=== PATIENT | male | born 1955 | race Caucasian/White ===

== ENCOUNTER 2019-10-19 21:10 | Inpatient (IN) | payer OTHER ==
[~2019-10-19] VITALS: Ht 180.3 cm; Wt 102.0 kg
--- NOTE | 2019-10-19 21:25 | NUR ---
PA AT BEDSIDE TO ASSESS PT
[2019-10-19] MEDS ORDERED: ALBUTEROL/IPRATROPIUM 2.5MG/0.5MG, 3 ML NPPB ONE (21:30)
[2019-10-19] MEDS ORDERED: SODIUM CHLORIDE FLUSH 10ML SYR IVF ONE (21:30)
--- NOTE | 2019-10-19 21:35 | NUR ---
LAB AT BEDSIDE AT THIS TIME
[2019-10-19 21:47] LABS: BASOPHILS # (AUTO) 0.03 x10^3/uL (0-0.1); BASOPHILS % (AUTO) 0 % (0-1); EOSINOPHILS # (AUTO) 0.39 x10^3/uL (0-0.4); EOSINOPHILS % (AUTO) 4 % (1-7); LYMPHOCYTES # (AUTO) 2.04 x10^3/uL (1-3.4); LYMPHOCYTES % (AUTO) 23 % (22-44); MD NO; MEAN CORPUSCULAR HEMOGLOBIN 33.7 pg (27.5-34.5); MEAN CORPUSCULAR HGB CONC 33.6 g/dL (33.2-36.2); MEAN CORPUSCULAR VOLUME 100.2 fL (81-97); MEAN PLATELET VOLUME 7.7 fL (7.4-10.4); MONOCYTES # (AUTO) 0.62 x10^3/uL (0.2-0.8); MONOCYTES % (AUTO) 7 % (2-9); NEUTROPHILS % (AUTO) 66 % (42-75); PLATELET COUNT 255 x10^3/uL (130-400); RED CELL DISTRIBUTION WIDTH 12.3 % (9.4-14.8)
[2019-10-19 21:59] LABS: ALANINE AMINOTRANSFERASE 20 U/L (12-78); ALBUMIN 3.7 g/dL (3.4-5.0); ANION GAP 6 mmol/L (5-15); CALCIUM 8.5 mg/dL (8.5-10.1); CHLORIDE 107 mmol/L (98-107); CREATININE 1.17 mg/dL (0.7-1.3)
[2019-10-19 22:03] LABS: ALKALINE PHOSPHATASE 144 U/L (45-117); BILIRUBIN,TOTAL 0.4 mg/dL (0.2-1.0); TOTAL PROTEIN 7.9 g/dL (6.4-8.2); TROPONIN I < 0.015 ng/mL (0.000-0.045)
[2019-10-19] MEDS ORDERED: OMNIPAQUE 350 MG/ML, 100ML BOTTLE ONE (22:36)
--- NOTE | 2019-10-19 23:01 | NUR ---
PT SITTING UP ON GURKEMP. CALL LIGHT WTIHIN REACH
[2019-10-20] MEDS ORDERED: hydrALAzine 20 MG/ML, 1ML IVPush PRN
[2019-10-20] MEDS ORDERED: ONDANSETRON ODT 4 MG PO PRN
[2019-10-20] MEDS ORDERED: OXYcodone IR 5MG TABLET PO PRN
[2019-10-20] MEDS ORDERED: POLYETHYLENE GLYCOL 17 GM PACKET PO PRN
[2019-10-20] MEDS ORDERED: BISACODYL 10 MG SUPP PR PRN
[2019-10-20] MEDS ORDERED: PROMETHAZINE 25 MG/ML, 1ML IM PRN
[2019-10-20] MEDS ORDERED: ACETAMINOPHEN 325 MG TABLET PO PRN
[2019-10-20] MEDS ORDERED: DOCUSATE 100 MG CAPSULE PO PRN
[2019-10-20] MEDS ORDERED: ONDANSETRON 2MG/ML, 2ML IVPush PRN
[2019-10-20 00:06] VITALS: BP 131/77
[2019-10-20 00:43] LABS: FREE T4 (FREE THYROXINE) 1.01 ng/dL (0.76-1.46)
[2019-10-20 00:46] LABS: HEMOGLOBIN A1C 5.7 % (4.2-6.3)
[2019-10-20] MEDS: ENOXAPARIN 40 MG/0.4 ML SQ SCH ×2 (01:22→23:20)
[2019-10-20] MEDS: GUAIFENESIN ER 600 MG TABLET PO SCH ×3 (01:22→20:47)
[2019-10-20] MEDS: NICOTINE 14MG/24 HR PATCH.TD24 TD SCH ×2 (01:22→23:20)
[2019-10-20] MEDS: SODIUM CHLORIDE 0.9% 1,000 ML IV SCH ×2 (01:22→07:52)
[2019-10-20] MEDS: LISINOPRIL 40 MG TABLET PO SCH ×2 (01:23)
[2019-10-20] MEDS ORDERED: ALBUTEROL/IPRATROPIUM 2.5MG/0.5MG, 3 ML NPPB PRN (02:30)
[2019-10-20 05:20] VITALS: BP 125/78
[2019-10-20] MEDS: methylPREDNISolone SOD SUCC 125 MG/2 ML IVPush SCH ×3 (05:24→20:49)
[2019-10-20] MEDS: CARVEDILOL 6.25 MG TABLET PO SCH ×2 (05:24→17:38)
[2019-10-20 06:49] LABS: BASOPHILS # (AUTO) 0.01 x10^3/uL (0-0.1); BASOPHILS % (AUTO) 0 % (0-1); EOSINOPHILS % (AUTO) 0 % (1-7); LYMPHOCYTES # (AUTO) 0.57 x10^3/uL (1-3.4); LYMPHOCYTES % (AUTO) 9 % (22-44); MD NO; MEAN CORPUSCULAR HEMOGLOBIN 33.2 pg (27.5-34.5); MEAN CORPUSCULAR VOLUME 97.6 fL (81-97); MEAN PLATELET VOLUME 7.9 fL (7.4-10.4); MONOCYTES # (AUTO) 0.03 x10^3/uL (0.2-0.8); MONOCYTES % (AUTO) 1 % (2-9); NEUTROPHILS # (AUTO) 5.48 x10^3/uL (1.8-6.8); NEUTROPHILS % (AUTO) 90 % (42-75); PLATELET COUNT 232 x10^3/uL (130-400); RED BLOOD COUNT 4.65 x10^6/uL (4.38-5.82); RED CELL DISTRIBUTION WIDTH 12.1 % (9.4-14.8)
[2019-10-20 06:55] LABS: CHLORIDE 107 mmol/L (98-107)
[2019-10-20 07:02] LABS: ALANINE AMINOTRANSFERASE 20 U/L (12-78); ALBUMIN 3.3 g/dL (3.4-5.0); ALKALINE PHOSPHATASE 119 U/L (45-117); ANION GAP 9 mmol/L (5-15); BILIRUBIN,TOTAL 0.5 mg/dL (0.2-1.0); CALCIUM 8.5 mg/dL (8.5-10.1); CHOL/HDL RATIO 4.2; CHOLESTEROL, TOTAL 160 mg/dL (140-239); CREATININE 1.05 mg/dL (0.7-1.3); HDL CHOL % 24 % (26-37); HDL CHOLESTEROL (DIRECT) 38 mg/dL (40-60); LDL CHOLESTEROL,CALCULATED 106 mg/dL (54-169); LDL/HDL RATIO 2.8 (0.5-3.0); TOTAL PROTEIN 7.2 g/dL (6.4-8.2); TRIGLYCERIDES 78 mg/dL (50-200); VLDL CHOLESTEROL 16 mg/dL (0-25)
[2019-10-20 07:07] VITALS: BP 132/81
[2019-10-20] MEDS ORDERED: PRAV20TA2 PO (07:10)
[2019-10-20] MEDS ORDERED: CHLO25TA PO (07:12)
[2019-10-20] MEDS ORDERED: LISI40TA PO (07:13)
[2019-10-20] MEDS ORDERED: CARV6.25 PO (07:15)
[2019-10-20] MEDS ORDERED: AMLO10TA8 PO (07:15)
[2019-10-20] MEDS: ALBUTEROL/IPRATROPIUM 2.5MG/0.5MG, 3 ML NPPB SCH ×4 (07:30→19:02)
[2019-10-20] MEDS: DOXYCYCLINE 100MG TABLET PO SCH ×2 (09:19→20:48)
[2019-10-20] MEDS: AMLODIPINE 10 MG TAB PO SCH (09:19)
[2019-10-20] MEDS: CHLORTHALIDONE 25 MG TABLET PO SCH (09:20)
[2019-10-20] MEDS ORDERED: LANS15CA PO (09:22)
[2019-10-20] MEDS: BUSPIRONE 5 MG TABLET PO SCH ×3 (09:26→20:47)
[2019-10-20 15:18] VITALS: BP 122/73
[2019-10-20 20:02] VITALS: BP 128/72
[2019-10-20] MEDS: PRAVASTATIN 20 MG TABLET PO SCH ×2 (20:48)
[2019-10-21 00:39] VITALS: BP 127/72
[2019-10-21] MEDS: methylPREDNISolone SOD SUCC 125 MG/2 ML IVPush SCH ×2 (04:08→11:53)
[2019-10-21] MEDS: CARVEDILOL 6.25 MG TABLET PO SCH (05:50)
[2019-10-21 07:11] VITALS: BP 134/75
[2019-10-21] MEDS: ALBUTEROL/IPRATROPIUM 2.5MG/0.5MG, 3 ML NPPB SCH ×2 (07:25→11:25)
[2019-10-21] MEDS: DOXYCYCLINE 100MG TABLET PO SCH (08:18)
[2019-10-21] MEDS: CHLORTHALIDONE 25 MG TABLET PO SCH (08:18)
[2019-10-21] MEDS: GUAIFENESIN ER 600 MG TABLET PO SCH (08:18)
[2019-10-21] MEDS: BUSPIRONE 5 MG TABLET PO SCH (08:18)
[2019-10-21] MEDS: AMLODIPINE 10 MG TAB PO SCH (08:18)
[2019-10-21 13:21] VITALS: BP 137/77
[2019-10-21] MEDS ORDERED: NICO-486 TD (14:49)
[2019-10-21] MEDS ORDERED: ALBU90AE INH (14:49)
[2019-10-21] MEDS ORDERED: PRED20TA PO (14:49)
[2019-10-21] MEDS ORDERED: DOXY100T PO (14:54)
== END 2019-10-21 16:32 | disposition home or self-care (01) | DRG 189 ==
LOC: ED 23:19 → EDIP 23:43 → 4WST 23:55 → DCLOUNGE 10-21 16:14
PROVIDERS: ADMIT Internal Medicine; ATTEND Family Medicine
DX: J96.01 Acute respiratory failure with hypoxia (principal); J44.0 Chronic obstructive pulmonary disease with (acute) lower respiratory infection; J44.1 Chronic obstructive pulmonary disease with (acute) exacerbation; J98.11 Atelectasis; E78.5 Hyperlipidemia, unspecified; F17.210 Nicotine dependence, cigarettes, uncomplicated; I10 Essential (primary) hypertension; I25.10 Atherosclerotic heart disease of native coronary artery without angina pectoris; J20.9 Acute bronchitis, unspecified
CPT/HCPCS: 36415; J7620; 71045; 71275; 80053; 80061; 82607; 83036; 83735; 83880; 84439; 84443; 84484; 85025; 93005; 94640; G0378; J1650; Q9967; J2930; J7030; J7512

== ENCOUNTER 2019-11-17 02:19 | Inpatient (IN) | payer OTHER ==
[~2019-11-17] VITALS: Ht 180.3 cm; Wt 100.0 kg
[~2019-11-17 02:19] MED LIST: ALBU90AE INH; AMLO10TA8 PO; CARV6.25 PO; CHLO25TA PO; DOXY100T PO; LANS15CA PO; LISI40TA PO; NICO-486 TD; PRAV20TA2 PO; PRED20TA PO
--- NOTE | 2019-11-17 02:37 | NUR ---
THIS IS A 64Y M THAT COMES IN FOR SOB AND COUGH. PT STS HE WAS SEEN HERE ABOUT A MONTH AGO FOR THE SAME AND WAS DX WITH COPD. PT CONNECTED TO ALL MONITORING, VSS, TORIBIO. PA AT BEDSIDE TO ASSESS PT.
[2019-11-17] MEDS ORDERED: methylPREDNISolone SOD SUCC 125 MG/2 ML IVPush STA (02:40)
[2019-11-17] MEDS ORDERED: methylPREDNISolone SOD SUCC 125 MG/2 ML ONE (02:49)
[2019-11-17] MEDS ORDERED: ASPIRIN 81 MG TABLET CHEW ONE (02:49)
[2019-11-17] MEDS ORDERED: IPRATROPIUM 0.5 MG/2.5 ML INHA ONE (02:59)
[2019-11-17] MEDS ORDERED: SODIUM CHLORIDE FLUSH 10ML SYR IVF ONE (03:00)
[2019-11-17] MEDS ORDERED: ASPIRIN 81 MG TABLET CHEW PO ONE (03:00)
[2019-11-17] MEDS ORDERED: IPRATROPIUM 0.5 MG/2.5 ML INHA NPPB ONE (03:00)
--- NOTE | 2019-11-17 03:02 | NUR ---
PT MEDICATED PER JAN. DAUGHTER AT BEDSIDE, CALL LIGHT IN REACH, TORIBIO.
--- NOTE | 2019-11-17 03:03 | NUR ---
RT AT BEDSIDE FOR BREATHING TX
[2019-11-17] MEDS ORDERED: ALBUTEROL SULFATE 2.5 MG/3 ML ONE (03:04)
[2019-11-17] MEDS: ALBUTEROL 0.5%, 20ML NPPB SCH ×2 (03:05→04:00)
[2019-11-17 03:08] LABS: BASOPHILS # (AUTO) 0.05 x10^3/uL (0-0.1); BASOPHILS % (AUTO) 1 % (0-1); EOSINOPHILS # (AUTO) 0.59 x10^3/uL (0-0.4); EOSINOPHILS % (AUTO) 7 % (1-7); LYMPHOCYTES # (AUTO) 1.27 x10^3/uL (1-3.4); LYMPHOCYTES % (AUTO) 16 % (22-44); MD NO; MEAN CORPUSCULAR HEMOGLOBIN 33.1 pg (27.5-34.5); MEAN CORPUSCULAR HGB CONC 34.3 g/dL (33.2-36.2); MEAN CORPUSCULAR VOLUME 96.3 fL (81-97); MEAN PLATELET VOLUME 7.3 fL (7.4-10.4); MONOCYTES # (AUTO) 0.53 x10^3/uL (0.2-0.8); MONOCYTES % (AUTO) 7 % (2-9); NEUTROPHILS # (AUTO) 5.56 x10^3/uL (1.8-6.8); NEUTROPHILS % (AUTO) 70 % (42-75); PLATELET COUNT 266 x10^3/uL (130-400); RED BLOOD COUNT 4.55 x10^6/uL (4.38-5.82); RED CELL DISTRIBUTION WIDTH 11.8 % (9.4-14.8)
[2019-11-17 03:18] LABS: ALANINE AMINOTRANSFERASE 18 U/L (12-78); ALBUMIN 3.6 g/dL (3.4-5.0); ANION GAP 7 mmol/L (5-15); CALCIUM 8.7 mg/dL (8.5-10.1); CHLORIDE 105 mmol/L (98-107); CREATININE 1.04 mg/dL (0.7-1.3)
[2019-11-17 03:22] LABS: ALKALINE PHOSPHATASE 126 U/L (45-117); BILIRUBIN,TOTAL 0.6 mg/dL (0.2-1.0); TOTAL PROTEIN 7.6 g/dL (6.4-8.2); TROPONIN I < 0.015 ng/mL (0.000-0.045)
[2019-11-17] MEDS ORDERED: ALBUTEROL/IPRATROPIUM 2.5MG/0.5MG, 3 ML ONE ×2 (03:54→03:58)
[2019-11-17] MEDS: ALBUTEROL/IPRATROPIUM 2.5MG/0.5MG, 3 ML NPPB SCH ×6 (03:56→23:20)
[2019-11-17] MEDS ORDERED: AZITHROMYCIN 500 MG in SODIUM CHLORIDE 0.9% 250 ML IV ONE (04:00)
--- NOTE | 2019-11-17 04:05 | NUR ---
PT MEDICATED PER JAN, VERIFIED WITH NO CULTURES TO BE DRAWN PRIOR TO ABX, VSS, NADN. CALL LIGHT IN REACH, RESPIRATORY AT BEDSIDE FOR BREATHING TX.
[2019-11-17] MEDS ORDERED: UMEC1DIS INH (04:39)
[2019-11-17] MEDS ORDERED: BUSPIRONE PO (04:42)
[2019-11-17 05:00] VITALS: BP 142/87
[2019-11-17] MEDS ORDERED: DOCUSATE 100 MG CAPSULE PO PRN (06:30)
[2019-11-17] MEDS ORDERED: BISACODYL 10 MG SUPP PR PRN (06:30)
[2019-11-17] MEDS ORDERED: ACETAMINOPHEN 325 MG TABLET PO PRN (06:30)
[2019-11-17] MEDS ORDERED: ONDANSETRON 2MG/ML, 2ML IVPush PRN (06:30)
[2019-11-17] MEDS ORDERED: ONDANSETRON ODT 4 MG PO PRN (06:30)
[2019-11-17] MEDS ORDERED: PROMETHAZINE 25 MG/ML, 1ML IM PRN (06:30)
[2019-11-17] MEDS ORDERED: POLYETHYLENE GLYCOL 17 GM PACKET PO PRN (06:30)
[2019-11-17] MEDS ORDERED: hydrALAzine 20 MG/ML, 1ML IVPush PRN (06:30)
[2019-11-17] MEDS ORDERED: OXYcodone IR 5MG TABLET PO PRN (06:30)
[2019-11-17] MEDS ORDERED: FUROSEMIDE 20 MG/2 ML ONE (06:47)
[2019-11-17] MEDS ORDERED: FUROSEMIDE 20 MG/2 ML IV ONE (07:00)
[2019-11-17 07:24] LABS: FREE T4 (FREE THYROXINE) 1.02 ng/dL (0.76-1.46)
[2019-11-17] MEDS: AMLODIPINE 10 MG TAB PO SCH (08:37)
[2019-11-17] MEDS: LISINOPRIL 40 MG TABLET PO SCH (08:37)
[2019-11-17] MEDS: BUSPIRONE 5 MG TABLET PO SCH ×2 (08:38→20:46)
[2019-11-17] MEDS: DOXYCYCLINE 100MG TABLET PO SCH ×2 (08:38→20:46)
[2019-11-17] MEDS: HEPARIN 5,000 UNITS/ML, 1ML SQ SCH ×2 (08:38→17:08)
[2019-11-17] MEDS: methylPREDNISolone SOD SUCC 125 MG/2 ML IVPush SCH ×3 (08:38→20:46)
[2019-11-17] MEDS: CHLORTHALIDONE 25 MG TABLET PO SCH (08:38)
[2019-11-17 08:53] VITALS: BP 110/77
[2019-11-17 13:11] VITALS: BP 118/78
[2019-11-17] MEDS ORDERED: MAGNESIUM SULFATE PMX 2GM/50ML 50 ML IV ONE (18:00)
[2019-11-17 20:35] VITALS: BP 100/62
[2019-11-17] MEDS: PRAVASTATIN 20 MG TABLET PO SCH (20:45)
[2019-11-18] MEDS: HEPARIN 5,000 UNITS/ML, 1ML SQ SCH ×3 (01:15→16:23)
[2019-11-18 01:17] VITALS: BP 144/76
[2019-11-18] MEDS: methylPREDNISolone SOD SUCC 125 MG/2 ML IVPush SCH ×4 (03:03→21:14)
[2019-11-18 05:20] LABS: ALBUMIN 3.4 g/dL (3.4-5.0); ANION GAP 7 mmol/L (5-15); CHLORIDE 104 mmol/L (98-107)
[2019-11-18 05:24] LABS: ALANINE AMINOTRANSFERASE 18 U/L (12-78); ALKALINE PHOSPHATASE 112 U/L (45-117); BILIRUBIN,TOTAL 0.3 mg/dL (0.2-1.0); CHOL/HDL RATIO 5.4; CHOLESTEROL, TOTAL 217 mg/dL (140-239); CREATININE 1.11 mg/dL (0.7-1.3); HDL CHOL % 18 % (26-37); HDL CHOLESTEROL (DIRECT) 40 mg/dL (40-60); LDL CHOLESTEROL,CALCULATED 159 mg/dL (54-169); TOTAL PROTEIN 7.3 g/dL (6.4-8.2); TRIGLYCERIDES 90 mg/dL (50-200); VLDL CHOLESTEROL 18 mg/dL (0-25)
[2019-11-18 05:46] LABS: BASOPHILS % (AUTO) 0 % (0-1); EOSINOPHILS % (AUTO) 0 % (1-7); LYMPHOCYTES # (AUTO) 0.73 x10^3/uL (1-3.4); LYMPHOCYTES % (AUTO) 6 % (22-44); MD NO; MEAN CORPUSCULAR HEMOGLOBIN 32.8 pg (27.5-34.5); MEAN CORPUSCULAR VOLUME 96.6 fL (81-97); MEAN PLATELET VOLUME 7.8 fL (7.4-10.4); MONOCYTES # (AUTO) 0.35 x10^3/uL (0.2-0.8); MONOCYTES % (AUTO) 3 % (2-9); NEUTROPHILS # (AUTO) 11.26 x10^3/uL (1.8-6.8); NEUTROPHILS % (AUTO) 91 % (42-75); PLATELET COUNT 259 x10^3/uL (130-400); RED BLOOD COUNT 4.39 x10^6/uL (4.38-5.82); RED CELL DISTRIBUTION WIDTH 12.3 % (9.4-14.8)
[2019-11-18] MEDS: PANTOPROZOLE 40MG TABLET PO SCH (07:30)
[2019-11-18 07:41] VITALS: BP 118/74
[2019-11-18] MEDS: ALBUTEROL/IPRATROPIUM 2.5MG/0.5MG, 3 ML NPPB SCH ×4 (07:46→20:46)
[2019-11-18] MEDS: LISINOPRIL 40 MG TABLET PO SCH (08:22)
[2019-11-18] MEDS: AMLODIPINE 10 MG TAB PO SCH (08:22)
[2019-11-18] MEDS: CHLORTHALIDONE 25 MG TABLET PO SCH (08:22)
[2019-11-18] MEDS: BUSPIRONE 5 MG TABLET PO SCH ×2 (08:23→21:11)
[2019-11-18] MEDS: DOXYCYCLINE 100MG TABLET PO SCH ×2 (08:23→21:11)
[2019-11-18] MEDS ORDERED: FUROSEMIDE 20 MG/2 ML IV ONE (08:30)
[2019-11-18 13:03] VITALS: BP 119/71
[2019-11-18] MEDS: BUDESONIDE 0.5 MG/2 ML INHA NPPB SCH ×2 (14:39→20:46)
[2019-11-18 20:21] VITALS: BP 129/83
[2019-11-18] MEDS: PRAVASTATIN 20 MG TABLET PO SCH (21:11)
[2019-11-19] MEDS: HEPARIN 5,000 UNITS/ML, 1ML SQ SCH ×2 (01:25→08:34)
[2019-11-19 01:45] VITALS: BP 134/79
[2019-11-19] MEDS: ALBUTEROL/IPRATROPIUM 2.5MG/0.5MG, 3 ML NPPB SCH ×2 (03:00→09:00)
[2019-11-19] MEDS: methylPREDNISolone SOD SUCC 125 MG/2 ML IVPush SCH ×2 (03:26→08:34)
[2019-11-19 05:26] LABS: BASOPHILS # (AUTO) 0.01 x10^3/uL (0-0.1); BASOPHILS % (AUTO) 0 % (0-1); EOSINOPHILS % (AUTO) 0 % (1-7); LYMPHOCYTES # (AUTO) 0.81 x10^3/uL (1-3.4); LYMPHOCYTES % (AUTO) 5 % (22-44); MD NO; MEAN CORPUSCULAR HEMOGLOBIN 32.7 pg (27.5-34.5); MEAN CORPUSCULAR HGB CONC 33.9 g/dL (33.2-36.2); MEAN CORPUSCULAR VOLUME 96.5 fL (81-97); MEAN PLATELET VOLUME 7.5 fL (7.4-10.4); MONOCYTES # (AUTO) 0.49 x10^3/uL (0.2-0.8); MONOCYTES % (AUTO) 3 % (2-9); NEUTROPHILS # (AUTO) 13.65 x10^3/uL (1.8-6.8); NEUTROPHILS % (AUTO) 91 % (42-75); PLATELET COUNT 279 x10^3/uL (130-400); RED BLOOD COUNT 4.54 x10^6/uL (4.38-5.82); RED CELL DISTRIBUTION WIDTH 12.2 % (9.4-14.8)
[2019-11-19] MEDS: PANTOPROZOLE 40MG TABLET PO SCH (05:58)
[2019-11-19 07:33] VITALS: BP 136/83
[2019-11-19] MEDS: AMLODIPINE 10 MG TAB PO SCH (08:35)
[2019-11-19] MEDS: CHLORTHALIDONE 25 MG TABLET PO SCH (08:35)
[2019-11-19] MEDS: DOXYCYCLINE 100MG TABLET PO SCH (08:35)
[2019-11-19] MEDS: BUSPIRONE 5 MG TABLET PO SCH (08:35)
[2019-11-19] MEDS: LISINOPRIL 40 MG TABLET PO SCH (08:35)
[2019-11-19] MEDS: BUDESONIDE 0.5 MG/2 ML INHA NPPB SCH (09:00)
[2019-11-19] MEDS ORDERED: PRED10TA PO (10:54)
[2019-11-19] MEDS ORDERED: DOXY100T PO (10:54)
[2019-11-19] MEDS ORDERED: FLU VACC QS2019-20 36MOS UP/PF 0.5 ML IM-VACC ONE (11:30)
== END 2019-11-19 13:20 | disposition home or self-care (01) | DRG 291 ==
LOC: ED 02:51 → EDIP 04:27 → 4NE 05:00 → DCLOUNGE 11-19 13:10
PROVIDERS: ADMIT Internal Medicine; ATTEND Internal Medicine
DX: I11.0 Hypertensive heart disease with heart failure (principal); J96.01 Acute respiratory failure with hypoxia; J44.1 Chronic obstructive pulmonary disease with (acute) exacerbation; I50.33 Acute on chronic diastolic (congestive) heart failure; D72.829 Elevated white blood cell count, unspecified; E78.00 Pure hypercholesterolemia, unspecified; E78.5 Hyperlipidemia, unspecified; E83.42 Hypomagnesemia; T38.0X5A Adverse effect of glucocorticoids and synthetic analogues, initial encounter; Z87.891 Personal history of nicotine dependence; Z79.899 Other long term (current) drug therapy; Z79.51 Long term (current) use of inhaled steroids; Y92.89 Other specified places as the place of occurrence of the external cause
CPT/HCPCS: 36415; 96365; 99285; J7620; J7626; 71045; 80053; 80061; 83036; 83735; 83880; 84439; 84443; 84484; 85025; 90686; 93005; 93306; 94640; G0378; J0456; J1644; J1940; J2930; J3475; J7050